=== PATIENT | female | born 2000 | race Hispanic/Latino ===

== ENCOUNTER → 2024-06-15 | Day surgery (SDC) | payer OTHER ==
[~2024-06-15] MED LIST: FENTANYL CITRATE/PF 100MCG/2 ML INJ ONE; GLUCAGON FOR INJ 1 MG VIAL ONE; LIDOCAINE HCL 2% LOCAL INJ 5 ML SDV VIAL INJ ONE; MIDAZOLAM HCL 2 MG/2 ML VIAL ONE; OSCILLOCOCCINUM; PROPOFOL IV EMULSION 10 MG/ML 20 ML VIAL ONE; SAMBUCUS E50 MG/5 M1
[2024-06-15] MEDS: LACTATED RINGER'S 1,000 ML ONE (12:43)
[2024-06-15 14:20] VITALS: BP 129/95; PULSE 95; RESP 16; O2SAT 96
[2024-06-15 15:16] LABS: CDIFF AG QUIK CHEK NEGATIVE (NEGATIVE); CDIFF TOX QUIK CHEK NEGATIVE (NEGATIVE)
[2024-06-16 10:31] LABS: C-REACTIVE PROTEIN 6 mg/L (0-10)
[2024-06-19 09:12] LABS: ENDOMYSIAL ANTIBODIES, IGA Negative (Negative)
[2024-06-19 09:47] LABS: IMMUNOGLOBULIN A 326 mg/dL (87-352); TISSUE TRANSGLUTAMINASE IGA AB <2 U/mL (0-3)
== END | disposition home or self-care (01) ==
LOC: OR 11:57
PROVIDERS: ATTEND Internal Medicine Gastroenterology
DX: K52.9 Noninfective gastroenteritis and colitis, unspecified (principal); K29.70 Gastritis, unspecified, without bleeding; K29.80 Duodenitis without bleeding; K31.89 Other diseases of stomach and duodenum; K20.90 Esophagitis, unspecified without bleeding; K62.89 Other specified diseases of anus and rectum; K64.8 Other hemorrhoids; Z71.3 Dietary counseling and surveillance; Z71.9 Counseling, unspecified; E28.2 Polycystic ovarian syndrome; E55.9 Vitamin D deficiency, unspecified; E66.01 Morbid (severe) obesity due to excess calories; Z68.42 Body mass index [BMI] 45.0-49.9, adult
CPT/HCPCS: 36415; 43239; 45380; 82784; 83516; 83630; 83993; 84702; 86140; 86256; 87045; 87177; 87324; 87328; 87449; J1610; J2003; J2250; J2470; J2704; J3010; J7121; 45378